=== PATIENT | female | born 1990 | race Two or more races ===

== ENCOUNTER 2024-04-18 09:25 | Emergency (ER) | payer MEDICAID, SELFPAY ==
[2024-04-18 10:02] VITALS: BP 132/89; PULSE 92; RESP 20; TEMP 36.7; O2SAT 96; BMI 28.4
--- NOTE | 2024-04-18 10:03 | XR_ITS ---
Examination: PA lateral chest 2 views TECHNIQUE: Upright AP lateral chest 2 views Exam date and time: April 18, 2024 1007 hours INDICATIONS: Chest pain vomiting beginning 3 days ago. FINDINGS: Early pneumonia lingular segment left upper lobe Right lung clear Normal heart size IMPRESSION: Early pneumonia lingular segment left upper lobe
--- NOTE | 2024-04-18 10:14 | PD.EDRME ---
Rapid Medical Screening Exam RME Arrival date/time: 04/18/24 09:25 This is a 33-year-old female presents to the emergency department with complaints of nausea vomiting cough and fever since Sunday. I have greeted and performed a focused initial assessment of this patient. Initial appropriate labs ordered at this time. A comprehensive ED assessment and evaluation of the patient and analysis of all test and completion of medical decision making process will be conducted by additional ED provider. Chief Complaint: Nausea/Vomiting/Diarrhea Time Seen by Provider: 04/18/24 10:01 Vital signs: Vital Signs Temperature 98.0 F 04/18/24 10:02 Pulse Rate 92 04/18/24 10:02 Respiratory Rate 20 04/18/24 10:02 Blood Pressure 132/89 H 04/18/24 10:02 Pulse Oximetry (%) 96 04/18/24 10:02 Oxygen Delivery Method Room Air 04/18/24 10:02
[2024-04-18 10:39] LABS: Basophils % (Auto) 0 % (0-2.5); Eosinophils % (Auto) 0 % (0-10); Hematocrit 48.5 % (36.0-46.0); Hemoglobin 16.7 g/dL (12.0-16.0); Immature Granulocytes % (Auto) 1 % (0-0); Immature Granulocytes Auto 0.06 Thou/mm3 (0.00-0.00); Lymphocytes # (Auto) 1.1 Thou/mm3 (1.0-4.8); Lymphocytes % (Auto) 12 % (10-50); Mean Corpuscular HGB Conc 34.4 g/dl (31.0-37.0); Mean Corpuscular Hemoglobin 28.5 pg (25.0-35.0); Mean Corpuscular Volume 83 fL (80-100); Monocytes # (Auto) 0.9 Thou/mm3 (0.0-0.8); Monocytes % (Auto) 10 % (0-12); Neutrophils # (Auto) 6.9 Thou/mm3 (1.8-7.7); Neutrophils % (Auto) 77 % (37-80); Nucleated Red Blood Cell % 0 /100 WBC (0); Platelet Count 208 Thou/mm3 (140-440); RDW Standard Deviation 37.8 fL (36.4-46.3); Red Blood Count 5.86 Miln/mm3 (4.00-5.20)
[2024-04-18] MEDS: LIDOCAINE VISCOUS 2% 15 ML UDC PO (10:57)
[2024-04-18] MEDS: ONDANSETRON ODT 4 MG TABRAP 8 MG PO (10:57)
[2024-04-18] MEDS: MG HYD/AL HYD/SIME (Maalox Reg) SUSP 30 ML UDC PO (10:58)
[2024-04-18 11:00] LABS: Alanine Aminotransferase 64 U/L (10-49); Albumin, Serum 5.8 gm/dL (3.5-5.0); Alkaline Phosphatase 102 U/L (46-116); Anion Gap 13 (7-16); Aspartate Amino Transferase 52 U/L (0-34); BUN/Creatinine Ratio 10 Ratio (12-20); Bilirubin,Total 1.2 mg/dL (0.3-1.2); Blood Urea Nitrogen 10 mg/dL (9-23); Calcium 9.7 mg/dL (8.3-10.6); Calcium (Corrected) 9.7 mg/dL (8.5-10.1); Carbon Dioxide 24.8 mMol/L (20.0-31.0); Chloride 94 mMol/L (98-107); Estimated Creatinine Clearance 81.6 mL/min (>60); Globulin 2.9 gm/dL (2.3-3.5); Glucose 142 mg/dL (74-106); Lipase 41 U/L (12-53); Osmolality,Calculated 265 (275-295); Potassium 3.2 mMol/L (3.4-5.1); Sodium 132 mMol/L (136-145); Total Protein 8.7 gm/dL (5.7-8.2); eGFR > 60 See Note
--- NOTE | 2024-04-18 12:15 | PD.EDADULT ---
ED General RME/HPI General Chief complaint: Nausea/Vomiting/Diarrhea Stated complaint: N/V, ABD PAIN Time Seen by Provider: 04/18/24 10:01 Arrival date/time: 04/18/24 09:25 RME / HPI RME / HPI narrative: 33-year-old female presents to the emergency department with complaints of nausea vomiting cough and fever since Sunday. Severity of symptoms moderate. Patient denies any fever. Patient denies any abdominal pain. Denies any other complaints. No medication was taken prior travel. Related Data Home Medications ?Medication ?Instructions ?Recorded ?Confirmed baclofen 20 mg tablet 20 mg PO QDAY PRN Pain 11/29/20 11/29/20 diclofenac sodium 1 % topical gel 4 g topical PRN PRN Pain 11/29/20 11/29/20 naproxen 500 mg tablet 500 mg PO Q12H PRN Pain 11/29/20 11/29/20 Previous Rx's ?Medication ?Instructions ?Recorded loperamide 2 mg capsule (Imodium 2 mg PO Q6H PRN loose stool #14 11/29/20 A-D) caps loperamide 2 mg capsule (Imodium 2 mg PO Q6H PRN loose stool #14 07/12/21 A-D) caps cetirizine 5 mg-pseudoephedrine ER 1 tab PO BID #20 tabs 12/18/21 120 mg tablet,extended release,12hr (Zyrtec-D) naproxen 500 mg tablet (Naprosyn) 500 mg PO BID #30 tabs 12/18/21 sodium chloride 0.65 % nasal spray 2 spray intranasal BID PRN nasal 12/18/21 aerosol (Saline Mist) congestion #45 mL cyclobenzaprine 5 mg tablet 5 mg PO QHSPRN PRN muscle spasm 09/03/22 #10 tabs lidocaine 5 % topical patch 1 patch topical QDAY #15 ea 09/03/22 (Lidoderm) cephalexin 500 mg capsule 500 mg PO QID #28 caps 09/18/22 albuterol sulfate 90 mcg/actuation 2 puff inhalation Q6H PRN 08/05/23 aerosol inhaler (Ventolin HFA) shortness of breath or wheezing #8.5 grams loratadine 10 mg tablet 10 mg PO QDAY #30 tabs 08/05/23 promethazine-DM 6.25 mg-15 mg/5 mL 5 ml PO Q6H PRN cough #118 mL 08/05/23 oral syrup benzonatate 100 mg capsule 100 mg PO TID #14 caps 12/18/23 amoxicillin 875 mg-potassium 1 tab PO BID #14 tabs 04/18/24 clavulanate 125 mg tablet famotidine 40 mg tablet (Pepcid) 40 mg PO BID #14 tabs 04/18/24 ondansetron HCl 4 mg tablet 4 mg PO Q8H PRN nausea and 04/18/24 vomiting 5 days #20 tabs Allergies Allergy/AdvReac Type Severity Reaction Status Date / Time ibuprofen AdvReac Severe HX STOMACH Verified 12/18/23 08:23 INFECTION Review of Systems Review of Systems Narrative Review of Systems: Review of system reviewed and within normal limits except mentioned in HPI ED Exam Narrative Physical exam: VITAL SIGNS: Reviewed. GENERAL APPEARANCE: Alert and interactive, follows commands, no acute distress, HEAD AND FACE: Non-traumatic. ENT: PERRL, pink conjunctivitis, eyelid no trauma, Mucous membrane moist. NECK: Supple, nontender, no nuchal rigidity. CHEST: No tenderness, no crepitus, no paradoxical movement, no retractions. LUNGS: Clear, well ventilated, symmetric, no rales, no wheezing, no ronchi, no stridor, good breath sounds bilaterally. HEART: Regular rate, regular rhythm, no murmur, no gallops. ABDOMEN: Soft, positive bowel sounds, nondistended, no guarding, nontender, no rebound, no masses, RECTAL: Deferred. GENITAL: Deferred. NEUROLOGICAL: Gross motor function intact sensory function intact, Appropriate for age. MUSCULOSKELETAL: low back nontender, full range of motion. EXTREMITIES: Nontender, full range of motion. SKIN: Color pink, dry, no rash, no lacerations, no abrasions, no contusions. LYMPHATICS: Deferred. Course Quality Measures none Orders Category Date Time Status Bedside COVID-19 Antigen Test NOW Care 04/18/24 10:12 Active Bedside Influenza A&B Antigen Test NOW Care 04/18/24 10:13 Active XR chest 2V Stat Exams 04/18/24 10:03 Completed CBC Stat Lab 04/18/24 10:28 Completed Comprehensive Metabolic Panel Stat Lab 04/18/24 10:28 Completed HCG Qualitative,Urine Stat Lab 04/18/24 10:13 Ordered Lipase Stat Lab 04/18/24 10:28 Completed Urinalysis Stat Lab 04/18/24 10:13 Ordered Amoxicillin/Pot Clav 875 [Augmentin 875] Med 04/18/24 12:13 Discontinued 1 tab PO X1 ONE Lidocaine 2% Viscous [Xylocaine 2% Viscous] Med 04/18/24 10:13 Discontinued 15 ml PO X1 ONE Ondansetron Odt [Zofran Odt] Med 04/18/24 10:12 Discontinued 8 mg PO X1 ONE Potassium Chloride [K-Dur] Med 04/18/24 12:13 Discontinued 40 meq PO X1 ONE mg Hyd/Al Hyd/Juan Jose Susp [Maalox Susp] Med 04/18/24 10:13 Discontinued 30 ml PO X1 ONE Vital Signs Vital signs: Vital Signs Temperature 98.0 F 04/18/24 10:02 Pulse Rate 92 04/18/24 10:02 Respiratory Rate 20 04/18/24 10:02 Blood Pressure 132/89 H 04/18/24 10:02 Pulse Oximetry (%) 96 04/18/24 10:02 Oxygen Delivery Method Room Air 04/18/24 10:02 [facility] Patient data External records reviewed:: None Clinical information provided by:: patient Social determinants that could affect healthcare access:: none Patient has the following chronic illnesses:: None How is presenting disease/condition affected by chronic disease/condition?: no chronic disease Evaluation data The following diagnostics were reviewed and interpreted by me:: lab results and radiology exam(s) Lab and/or radiology exams considered but not ordered:: None Interpretation Summary: Laboratory workup is significant for potassium 3.2. The rest of the labs are unremarkable. Chest x-ray showed pneumonia Medications Medications considered but not ordered:: None Medication administrations:: Medication Administration History Discontinued Medications Al Hydrox/Mg Hydrox/Simethicone (Mg Hyd/Al Hyd/Juan Jose (Maalox Reg) Susp 30 Ml Udc) 30 ml PO X1 ONE Stop: 04/18/24 10:14 Last Admin: 04/18/24 10:58 Dose: 30 ml Documented By: ISHA Amoxicillin/Clavulanate Potassium (Amoxicillin/Pot Clav 875 Tablet) 1 tab PO X1 ONE Stop: 04/18/24 12:14 Lidocaine HCl (Lidocaine Viscous 2% 15 Ml Udc) 15 ml PO X1 ONE Stop: 04/18/24 10:14 Last Admin: 04/18/24 10:57 Dose: 15 ml Documented By: ISHA Ondansetron HCl (Ondansetron Odt 4 Mg Tabrap) 8 mg PO X1 ONE; Protocol Stop: 04/18/24 10:13 Last Admin: 04/18/24 10:57 Dose: 8 mg Documented By: ISHA Potassium Chloride (Potassium Chloride 20 Meq Tabcr) 40 meq PO X1 ONE Stop: 04/18/24 12:14 None potassium replacement Zofran Augmentin and Maalox Consultations Consultation(s) initiated? (list below): No Diagnosis Differential Diagnosis ED Complaint MDM: Pneumonia, nausea vomiting, viral infection Most likely diagnosis given after review of the tests above:: Pneumonia Admission Indicated Admission indicated?: not indicated Explain why admission is indicated or not indicated:: Stable Admission Request Was there a request for admission?: No Disposition Plan Disposition Plan: Discharge Discharge Attestation Discharge Attestation: The patient was given an opportunity to ask questions and understood the discharge instructions. Discharge instructions specifically effects, indications for sooner follow up or return to the emergency department, and the expected course of current diagnosis. Patient condition: Stable Medical Decision Making MDM Narrative MDM Narrative: 33-year-old female presents to the emergency department with complaints of nausea vomiting cough and fever since Sunday. Severity of symptoms moderate. Patient denies any fever. Patient denies any abdominal pain. Denies any other complaints. No medication was taken prior travel. Patient's workup all came back with chest x-ray that showed pneumonia. CBC no leukocytosis CMP showed potassium of 3.2 the rest of the labs unremarkable. Patient received Zofran, Maalox, Augmentin, and potassium replacement in the ED. Currently patient is satting 96% on room air patient is tolerating p.o. fluids in the ED. Differential Diagnosis Differential Diagnosis: Pneumonia, nausea vomiting, viral infection Lab Data 04/18/24 10:28 04/18/24 10:28 Labs: Lab Results 04/18/24 Range/Units 10:28 WBC 9.0 (3.6-11.0) Thou/mm3 RBC 5.86 H (4.00-5.20) Miln/mm3 Hgb 16.7 H (12.0-16.0) g/dL Hct 48.5 H (36.0-46.0) % MCV 83 (80-100) fL MCH 28.5 (25.0-35.0) pg MCHC 34.4 (31.0-37.0) g/dl RDW Std Deviation 37.8 (36.4-46.3) fL Plt Count 208 (140-440) Thou/mm3 Neut % (Auto) 77 (37-80) % Lymph % (Auto) 12 (10-50) % [place] % (Auto) 10 (0-12) % Eos % (Auto) 0 (0-10) % Baso % (Auto) 0 (0-2.5) % Neut # (Auto) 6.9 (1.8-7.7) Thou/mm3 Lymph # (Auto) 1.1 (1.0-4.8) Thou/mm3 [place] # (Auto) 0.9 H (0.0-0.8) Thou/mm3 Eos # (Auto) 0.0 (0.0-0.5) Thou/mm3 Baso # (Auto) 0.0 (0.0-0.2) Thou/mm3 Immature Gran # (Auto) 0.06 H (0.00-0.00) Thou/mm3 Absolute Nucleated RBC 0.00 (0.00-0.00) Thou/mm3 Immature Gran % 1 H (0-0) % Nucleated RBC % 0 (0) /100 WBC Sodium 132 L (136-145) mMol/L Potassium 3.2 L (3.4-5.1) mMol/L Chloride 94 L (98-107) mMol/L Carbon Dioxide 24.8 (20.0-31.0) mMol/L Anion Gap 13 (7-16) BUN 10 (9-23) mg/dL Creatinine 1.0 (0.6-1.3) mg/dL Estim Creat Clear Calc 81.6 (>60) mL/min eGFR > 60 (60 - ) See Note BUN/Creatinine Ratio 10 L (12-20) Ratio Glucose 142 H (74-106) mg/dL Calculated Osmolality 265 L (275-295) Calcium 9.7 (8.3-10.6) mg/dL Corrected Calcium 9.7 (8.5-10.1) mg/dL Total Bilirubin 1.2 (0.3-1.2) mg/dL AST 52 H (0-34) U/L ALT 64 H (10-49) U/L Alkaline Phosphatase 102 (46-116) U/L Total Protein 8.7 H (5.7-8.2) gm/dL Albumin 5.8 H (3.5-5.0) gm/dL Globulin 2.9 (2.3-3.5) gm/dL Albumin/Globulin Ratio 2.0 (1.2-2.2) Lipase 41 (12-53) U/L Discharge Plan Plan Patient Disposition: HOME (Self Care) Disposition Comment: stable Prescriptions/Referrals Prescriptions/Med Rec: New amoxicillin-pot clavulanate 875-125 mg tablet 1 tab PO BID Qty: 14 0RF ondansetron HCl 4 mg tablet 4 mg PO Q8H PRN (Reason: nausea and vomiting) 5 Days Qty: 20 0RF famotidine [Pepcid] 40 mg tablet 40 mg PO BID Qty: 14 0RF No Action baclofen 20 mg tablet 20 mg PO QDAY PRN (Reason: Pain) Patient Comments: take 1 tablet by mouth twice a day if needed for MUSCLE PAIN naproxen 500 mg tablet 500 mg PO Q12H PRN (Reason: Pain) Patient Comments: take 1 tablet by mouth every 12 hours if needed pain diclofenac sodium 1 % gel 4 g TOPICAL PRN PRN (Reason: Pain) Patient Comments: apply 4 grams to AFFECTED JOINT four times a day loperamide [Imodium A-D] 2 mg capsule 2 mg PO Q6H PRN (Reason: loose stool) Qty: 14 0RF loperamide [Imodium A-D] 2 mg capsule 2 mg PO Q6H PRN (Reason: loose stool) Qty: 14 0RF cetirizine-pseudoephedrine [Zyrtec-D] 5-120 mg tablet extended release 12 hr 1 tab PO BID Qty: 20 0RF naproxen [Naprosyn] 500 mg tablet 500 mg PO BID Qty: 30 0RF Saline Mist 0.65 % aerosol,spray 2 spray intranasal BID PRN (Reason: nasal congestion) Qty: 45 0RF cyclobenzaprine 5 mg tablet 5 mg PO QHSPRN PRN (Reason: muscle spasm) Qty: 10 0RF lidocaine [Lidoderm] 5 % adhesive patch,medicated 1 patch topical QDAY Qty: 15 0RF Rx Instructions: leave on most painful area for up to 12 hrs cephalexin 500 mg capsule 500 mg PO QID Qty: 28 0RF benzonatate 100 mg capsule 100 mg PO TID Qty: 14 0RF albuterol sulfate [Ventolin HFA] 90 mcg/actuation HFA aerosol inhaler 2 puff inhalation Q6H PRN (Reason: shortness of breath or wheezing) Qty: 8.5 0RF promethazine-DM 6.25-15 mg/5 mL syrup 5 ml PO Q6H PRN (Reason: cough) Qty: 118 0RF loratadine 10 mg tablet 10 mg PO QDAY Qty: 30 0RF Referrals: Travis Walker MD [Primary Care Provider] - In 1 week Problem List Clinical Impression: Nausea & vomiting, Pneumonia Patient/Caregiver Discharge Instructions Discharge Activity: activity as tolerated Education Materials: ED Vomiting (Adult) Additional Instructions: Thank you for the opportunity for serving you today. You are stable for discharged . You are advised to: Follow-up with your PCP in 1 to 2 days Return to ED for worsening of symptoms Increase oral fluids Take medication as prescribed Print Language: Divehi Stand Alone Forms: Dinorah Award Info., Work/School Release, Patient Portal Info Letter
[2024-04-18 12:38] LABS: Collection Type, Urine Clean Catch
[2024-04-18 13:02] LABS: Bacteria,Urine 1+; Bilirubin,Urine 1+ (Negative); Blood,Urine 2+ (Negative); Color,Urine Yellow (Lt Yel-Yel); Glucose, Urine Trace (Negative); Ketones,Urine 4+ (Negative); Leukocyte Esterase,Urine Negative (Negative); Nitrite,Urine Negative (Negative); PH,Urine 6.5 (5.0-7.0); Protein,Urine 4+ (Neg - Trace); RBC,Urine 10 /hpf (0-3); Specific Gravity,Urine 1.038 (1.001-1.035); Squamous Epithelial Cell,Urine 7 /hpf (0-5); WBC,Urine 18 /hpf (0-5)
[2024-04-18 13:05] LABS: HCG Qualitative,Urine Negative
[2024-04-18] MEDS: POTASSIUM CHLORIDE 20 mEq TABCR 40 MEQ PO (13:05)
[2024-04-18] MEDS: AMOXICILLIN/POT CLAV 875 TABLET 1 TAB PO (13:06)
[2024-04-18 13:44] LABS: Clarity,Urine Hazy (Clear/Hazy)
== END 2024-04-18 13:10 | disposition home or self-care (01) ==
PROVIDERS: Nurse Practitioner Primary Care; Emergency Provider Emergency Medicine; PCP Family Medicine
DX: J18.9 Pneumonia, unspecified organism (principal)
CPT/HCPCS: 36415; 71046; 80053; 81001; 81025; 83690; 85025; 87400; 87811; 99283; J3490; Q0162; A9270

== ENCOUNTER 2024-04-21 06:44 | Emergency (ER) | payer MEDICAID, SELFPAY ==
[2024-04-21 06:45] VITALS: BMI 30.9
[2024-04-21 06:52] VITALS: BP 136/89; PULSE 115; RESP 17; TEMP 36.5; O2SAT 96
[2024-04-21] MEDS: SODIUM CHLORIDE 0.9% 1000 ML 1,000 ML 999 ML IV (07:13)
[2024-04-21] MEDS: METOCLOPRAMIDE INJ 5 MG/ML VIAL 2 ML 10 MG IVP (07:17)
[2024-04-21 07:29] LABS: Basophils # (Auto) 0.1 Thou/mm3 (0.0-0.2); Basophils % (Auto) 1 % (0-2.5); Eosinophils % (Auto) 0 % (0-10); Hematocrit 52.1 % (36.0-46.0); Hemoglobin 18.2 g/dL (12.0-16.0); Immature Granulocytes % (Auto) 0 % (0-0); Immature Granulocytes Auto 0.03 Thou/mm3 (0.00-0.00); Lymphocytes # (Auto) 2.2 Thou/mm3 (1.0-4.8); Lymphocytes % (Auto) 30 % (10-50); Mean Corpuscular HGB Conc 34.9 g/dl (31.0-37.0); Mean Corpuscular Hemoglobin 28.1 pg (25.0-35.0); Mean Corpuscular Volume 80 fL (80-100); Monocytes # (Auto) 0.5 Thou/mm3 (0.0-0.8); Monocytes % (Auto) 6 % (0-12); Neutrophils # (Auto) 4.6 Thou/mm3 (1.8-7.7); Neutrophils % (Auto) 63 % (37-80); Nucleated Red Blood Cell % 0 /100 WBC (0); Platelet Count 300 Thou/mm3 (140-440); RDW Standard Deviation 35.1 fL (36.4-46.3); Red Blood Count 6.48 Miln/mm3 (4.00-5.20); White Blood Count 7.3 Thou/mm3 (3.6-11.0)
[2024-04-21 07:58] LABS: Collection Type, Urine Clean Catch
[2024-04-21 08:19] VITALS: BP 128/85; PULSE 71; RESP 15; TEMP 36.7; O2SAT 87
[2024-04-21 08:20] VITALS: O2SAT 94
--- NOTE | 2024-04-21 08:33 | XR_ITS ---
Examination: AP chest single view Technique one AP portable upright chest single view Exam date and time: April 21, 2024 0838 hours INDICATIONS: Shortness of breath today FINDINGS: Normal heart size Lungs are clear. The osseous structures are intact IMPRESSION: No active disease
[2024-04-21 08:52] LABS: Alanine Aminotransferase 222 U/L (10-49); Albumin, Serum 5.6 gm/dL (3.5-5.0); Albumin/Globulin Ratio 1.9 (1.2-2.2); Alkaline Phosphatase 106 U/L (46-116); Anion Gap 17 (7-16); Aspartate Amino Transferase 178 U/L (0-34); BUN/Creatinine Ratio 12 Ratio (12-20); Bilirubin,Total 1.4 mg/dL (0.3-1.2); Blood Urea Nitrogen 16 mg/dL (9-23); Calcium 9.8 mg/dL (8.3-10.6); Calcium (Corrected) 9.8 mg/dL (8.5-10.1); Carbon Dioxide 23.5 mMol/L (20.0-31.0); Chloride 94 mMol/L (98-107); Creatinine (Component) 1.3 mg/dL (0.6-1.3); Globulin 2.9 gm/dL (2.3-3.5); Glucose 183 mg/dL (74-106); Lipase 47 U/L (12-53); Osmolality,Calculated 274 (275-295); Potassium 3.2 mMol/L (3.4-5.1); Sodium 134 mMol/L (136-145); Total Protein 8.5 gm/dL (5.7-8.2); eGFR 55 See Note
[2024-04-21] MEDS: ALBUTEROL/IPRATROPIUM (Duoneb) RT SOL 3 ML NEBU INH (08:53)
[2024-04-21 08:54] VITALS: PULSE 74; RESP 18; O2SAT 97
[2024-04-21] MEDS: DEXAMETHASONE SOD PHOS INJ 10 MG/ML VIAL IV (08:56)
--- NOTE | 2024-04-21 09:05 | XR_ITS ---
Examination: Abdomen sonogram, Limited Date and time of exam: April 21, 2024 1001 hours INDICATIONS: Vomiting beginning 6 days ago Technique: Real-time mark scale transabdominal sonographic images of the upper abdomen obtained. Findings: Normal gallbladder Normal common bile duct 0.3 cm Pancreatic head 2.4 cm Liver 16.8 cm fatty infiltration smooth contour no focal liver lesions Normal hepatopedal portal venous flow Patent IVC IMPRESSION: Normal gallbladder Mild hepatomegaly fatty liver
[2024-04-21 09:14] LABS: Bilirubin,Urine 1+ (Negative); Blood,Urine 3+ (Negative); Color,Urine Orange (Lt Yel-Yel); Culture Indicated,Urine Contaminated; Glucose, Urine Trace (Negative); Ketones,Urine 2+ (Negative); Leukocyte Esterase,Urine Positive (Negative); Nitrite,Urine Negative (Negative); PH,Urine 6.5 (5.0-7.0); Protein,Urine 3+ (Neg - Trace); RBC,Urine 3873 /hpf (0-3); Squamous Epithelial Cell,Urine 17 /hpf (0-5); WBC,Urine 20 /hpf (0-5)
[2024-04-21 09:18] LABS: Clarity,Urine Turbid (Clear/Hazy)
[2024-04-21 09:19] LABS: HCG Qualitative,Urine Negative
--- NOTE | 2024-04-21 09:20 | PD.EDNV ---
Nausea/Vomit./Diarrhea-RME/HPI General Chief complaint: Nausea/Vomiting/Diarrhea Stated complaint: N/V/D X 1 WEEK Time Seen by Provider: 04/21/24 06:51 Arrival date/time: 04/21/24 06:44 33-year-old female presents emergency department complains of nausea vomiting and diarrhea patient for symptoms ongoing x 1 week patient was recently seen in the ER patient was diagnosed with pneumonia as well as influenza patient reports she still has vomiting Limitations: no limitations Related Data Home Medications ?Medication ?Instructions ?Recorded ?Confirmed baclofen 20 mg tablet 20 mg PO QDAY PRN Pain 11/29/20 11/29/20 diclofenac sodium 1 % topical gel 4 g topical PRN PRN Pain 11/29/20 11/29/20 naproxen 500 mg tablet 500 mg PO Q12H PRN Pain 11/29/20 11/29/20 Previous Rx's ?Medication ?Instructions ?Recorded loperamide 2 mg capsule (Imodium 2 mg PO Q6H PRN loose stool #14 11/29/20 A-D) caps loperamide 2 mg capsule (Imodium 2 mg PO Q6H PRN loose stool #14 07/12/21 A-D) caps cetirizine 5 mg-pseudoephedrine ER 1 tab PO BID #20 tabs 12/18/21 120 mg tablet,extended release,12hr (Zyrtec-D) naproxen 500 mg tablet (Naprosyn) 500 mg PO BID #30 tabs 12/18/21 sodium chloride 0.65 % nasal spray 2 spray intranasal BID PRN nasal 12/18/21 aerosol (Saline Mist) congestion #45 mL cyclobenzaprine 5 mg tablet 5 mg PO QHSPRN PRN muscle spasm 09/03/22 #10 tabs lidocaine 5 % topical patch 1 patch topical QDAY #15 ea 09/03/22 (Lidoderm) cephalexin 500 mg capsule 500 mg PO QID #28 caps 09/18/22 albuterol sulfate 90 mcg/actuation 2 puff inhalation Q6H PRN 08/05/23 aerosol inhaler (Ventolin HFA) shortness of breath or wheezing #8.5 grams loratadine 10 mg tablet 10 mg PO QDAY #30 tabs 08/05/23 promethazine-DM 6.25 mg-15 mg/5 mL 5 ml PO Q6H PRN cough #118 mL 08/05/23 oral syrup benzonatate 100 mg capsule 100 mg PO TID #14 caps 12/18/23 amoxicillin 875 mg-potassium 1 tab PO BID #14 tabs 04/18/24 clavulanate 125 mg tablet famotidine 40 mg tablet (Pepcid) 40 mg PO BID #14 tabs 04/18/24 ondansetron HCl 4 mg tablet 4 mg PO Q8H PRN nausea and 04/18/24 vomiting 5 days #20 tabs oseltamivir 75 mg capsule (Tamiflu) 75 mg PO BID 5 days #10 caps 04/18/24 metoclopramide HCl 10 mg tablet 10 mg PO Q6H PRN nausea and 04/21/24 (Reglan) vomiting #30 tabs promethazine 12.5 mg rectal 12.5 mg AR Q8HR PRN nausea and 04/21/24 suppository vomiting #12 ea Allergies Allergy/AdvReac Type Severity Reaction Status Date / Time ibuprofen AdvReac Severe HX STOMACH Verified 04/21/24 06:48 INFECTION Review of Systems Review of Systems Systems Reviewed: All systems reviewed, normal except as documented Constitutional Constitutional: Reports system reviewed and no additional complaints, except as documented, Reports body ache(s), Reports chills, Reports fever(s) and Denies headache(s) Eyes Eyes: Reports system reviewed and no additional complaints, except as documented and Denies blurry vision ENT Ears, Nose, Mouth, and Throat: Reports system reviewed and no additional complaints, except as documented, Denies headache(s), Denies nasal congestion and Denies nasal discharge Cardiovascular Cardiovascular: Reports system reviewed and no additional complaints, except as documented, Denies chest pain and Denies dyspnea Respiratory Respiratory: Reports system reviewed and no additional complaints, except as documented, Reports chest congestion, Reports cough and Denies dyspnea Gastrointestinal Gastrointestinal: Reports system reviewed and no additional complaints, except as documented, Denies abdominal pain, Reports loose stools, Reports nausea and Reports vomiting Integumentary/Breasts Skin/Breast: Reports system reviewed and no additional complaints, except as documented and Denies rash Neurologic Neurologic: Reports system reviewed and no additional complaints, except as documented, Reports as per HPI and Denies headache(s) Past Medical History Past Medical History NEUROLOGIC: Negative Neurological Disorders CARDIAC: Negative Cardiac Disorders or Congestive Heart Failure RESPIRATORY: Negative Chronic Obstructive Pulmonary Disease (COPD) or Asthma GENITOURINARY: Negative Renal Disease ENDOCRINE: Negative Diabetes Mellitus Type 1 or Diabetes Mellitus Type 2 HEMATOLOGIC: Negative Sickle Cell Disease Social History SMOKING STATUS: Current some day smoker SUBSTANCE USE: marijuana ED Exam General Limitations: Present no limitations General appearance: Present alert and in no apparent distress Head Head exam: Present atraumatic Eye Eye exam: Present normal appearance, PERRL and EOMI; Absent conjunctival injection ENT ENT exam: Present normal exam, normal oropharynx and mucous membranes moist Neck Neck exam: Present normal inspection, full ROM and trachea midline Chest Chest inspection: Present normal inspection and symmetric chest wall rise Respiratory Respiratory exam: Present normal lung sounds bilaterally; Absent respiratory distress Cardiovascular Cardiovascular exam: Present regular rate, normal rhythm and normal heart sounds Abdominal Exam Abdominal exam: Present soft and normal bowel sounds; Absent distention, tenderness, guarding, rebound, rigidity, Jackson's sign or tenderness at McBurney's Point Abdominal tenderness: Absent RUQ or RLQ Extremities Exam Extremities exam: Present normal inspection and full ROM Back Exam Back exam: Present normal inspection and full ROM Neurological Exam Neurological exam: Present alert, oriented X3 and CN II-XII intact Psychiatric Psychiatric exam: Present normal affect and normal mood Skin Skin exam: Present warm, dry, intact and normal color Course Quality Measures none Orders Category Date Time Status Insert IV NOW Care 04/21/24 07:12 Completed US gall bladder Stat Exams 04/21/24 09:05 Completed XR chest 1V portable Stat Exams 04/21/24 08:33 Completed A1C [Glycohemoglobin w (eAG)] Stat Lab 04/21/24 07:22 Completed CBC Stat Lab 04/21/24 07:22 Completed Comprehensive Metabolic Panel Stat Lab 04/21/24 07:22 Completed HCG Qualitative,Urine Stat Lab 04/21/24 07:43 Completed Lipase Stat Lab 04/21/24 07:22 Completed Yolo Screen Stat Lab 04/21/24 10:31 Received UA, C/S IF [Urinalysis, C/S if Indicated] Stat Lab 04/21/24 07:43 Completed Albuterol/Ipratr Rt Sharon [Duoneb Rt Sharon] Med 04/21/24 08:33 Discontinued 3 ml INH X1 ONE Dexamethasone Inj [Decadron Inj] Med 04/21/24 08:33 Discontinued 10 mg IV X1 ONE Metoclopramide Inj [Reglan Inj] Med 04/21/24 07:00 Discontinued 10 mg IVP X1 ONE Potassium Chloride [K-Dur] Med 04/21/24 09:06 Discontinued 40 meq PO X1 ONE Sodium Chloride 0.9% 1000 ml [Ns] 1,000 ml Med 04/21/24 07:00 Discontinued IV 999 mls/hr Vital Signs Vital signs: Vital Signs Temperature 97.7 F 04/21/24 06:52 Pulse Rate 115 H 04/21/24 06:52 Respiratory Rate 17 04/21/24 06:52 Blood Pressure 136/89 H 04/21/24 06:52 Pulse Oximetry (%) 96 04/21/24 06:52 Oxygen Delivery Method Room Air 04/21/24 06:52 O2 saturation 96% on room air within normal limits Nausea/Vomiting/Diarrhea MDM Narrative MDM Narrative:: 33-year-old female presents emergency department complains of nausea vomiting and diarrhea patient for symptoms ongoing x 1 week patient was recently seen in the ER patient was diagnosed with pneumonia as well as influenza patient reports she still has vomiting Lab work obtained patient has elevation of liver enzymes Gallbladder ultrasound obtained no acute emergent findings noted I suspect the patient's liver enzymes elevated secondary viral process Yolo was added and is pending Patient does have cough and congestion therefore patient given breathing treatment and steroids, patient given IV fluids and a dose of potassium Time reevaluation patient reports she feels significantly better Explained to the patient that she should have repeat chemistry panel in 1 week Patient discharged home in no distress to follow-up with primary care doctor in the next 24 to 48 hours and for any worsening symptoms to return to the ER immediately Patient data External records reviewed:: [facility] previous records Clinical information provided by:: patient Social determinants that could affect healthcare access:: none Patient has the following chronic illnesses:: None How is presenting disease/condition affected by chronic disease/condition?: uneffected by Evaluation data The following diagnostics were reviewed and interpreted by me:: lab results and radiology exam(s) Lab and/or radiology exams considered but not ordered:: Labs and radiology obtained Interpretation Summary: Reviewed by me Medications / Prescriptions Medications / Prescriptions considered but not ordered:: Given Medication administrations:: Medication Administration History Discontinued Medications Albuterol/Ipratropium (Albuterol/Ipratropium (Duoneb) Rt Sharon 3 Ml Nebu) 3 ml INH X1 ONE Stop: 04/21/24 08:34 Last Admin: 04/21/24 08:53 Dose: 3 ml Documented By: CRYSTAL Dexamethasone Sodium Phosphate (Dexamethasone Sod Phos Inj 10 Mg/Ml Vial) 10 mg IV X1 ONE Stop: 04/21/24 08:34 Last Admin: 04/21/24 08:56 Dose: 10 mg Documented By: KARAN Sodium Chloride (Ns) 1,000 mls @ 999 mls/hr IV .Q1H1M ONE Stop: 04/21/24 08:00 Last Infusion: 04/21/24 08:25 Dose: Infused Documented By: Admin: 04/21/24 07:13 Dose: 999 mls/hr Documented By: KARAN Metoclopramide HCl (Metoclopramide Inj 5 Mg/Ml Vial 2 Ml) 10 mg IVP X1 ONE; Protocol Stop: 04/21/24 07:01 Last Admin: 04/21/24 07:17 Dose: 10 mg Documented By: KARAN Potassium Chloride (Potassium Chloride 20 Meq Tabcr) 40 meq PO X1 ONE Stop: 04/21/24 09:07 Last Admin: 04/21/24 09:35 Dose: 40 meq Documented By: KARAN Given Consultations Consultation(s) initiated? (list below): No Diagnosis Nausea Differential Diagnosis: traveler's diarrhea, food poisoning, gastroenteritis and dehydration Most likely diagnosis given after review of the tests above:: Viral illness Admission Indicated Admission indicated?: not indicated Admission Request Was there a request for admission?: No Disposition Plan Disposition Plan: Discharge Discharge Attestation Discharge Attestation: The patient and all family members were given an opportunity to ask questions and understood the discharge instructions. Discharge instructions specifically effects, indications for sooner follow up or return to the emergency department, and the expected course of current diagnosis. Patient condition: Stable Discharge Plan Plan Patient Disposition: HOME (Self Care) Disposition Comment: Stable Prescriptions/Referrals Prescriptions/Med Rec: New promethazine 12.5 mg suppository 12.5 mg AR Q8HR PRN (Reason: nausea and vomiting) Qty: 12 0RF metoclopramide HCl [Reglan] 10 mg tablet 10 mg PO Q6H PRN (Reason: nausea and vomiting) Qty: 30 0RF No Action baclofen 20 mg tablet 20 mg PO QDAY PRN (Reason: Pain) Patient Comments: take 1 tablet by mouth twice a day if needed for MUSCLE PAIN naproxen 500 mg tablet 500 mg PO Q12H PRN (Reason: Pain) Patient Comments: take 1 tablet by mouth every 12 hours if needed pain diclofenac sodium 1 % gel 4 g TOPICAL PRN PRN (Reason: Pain) Patient Comments: apply 4 grams to AFFECTED JOINT four times a day loperamide [Imodium A-D] 2 mg capsule 2 mg PO Q6H PRN (Reason: loose stool) Qty: 14 0RF loperamide [Imodium A-D] 2 mg capsule 2 mg PO Q6H PRN (Reason: loose stool) Qty: 14 0RF cetirizine-pseudoephedrine [Zyrtec-D] 5-120 mg tablet extended release 12 hr 1 tab PO BID Qty: 20 0RF naproxen [Naprosyn] 500 mg tablet 500 mg PO BID Qty: 30 0RF Saline Mist 0.65 % aerosol,spray 2 spray intranasal BID PRN (Reason: nasal congestion) Qty: 45 0RF cyclobenzaprine 5 mg tablet 5 mg PO QHSPRN PRN (Reason: muscle spasm) Qty: 10 0RF lidocaine [Lidoderm] 5 % adhesive patch,medicated 1 patch topical QDAY Qty: 15 0RF Rx Instructions: leave on most painful area for up to 12 hrs cephalexin 500 mg capsule 500 mg PO QID Qty: 28 0RF benzonatate 100 mg capsule 100 mg PO TID Qty: 14 0RF amoxicillin-pot clavulanate 875-125 mg tablet 1 tab PO BID Qty: 14 0RF ondansetron HCl 4 mg tablet 4 mg PO Q8H PRN (Reason: nausea and vomiting) 5 Days Qty: 20 0RF famotidine [Pepcid] 40 mg tablet 40 mg PO BID Qty: 14 0RF oseltamivir [Tamiflu] 75 mg capsule 75 mg PO BID 5 Days Qty: 10 0RF albuterol sulfate [Ventolin HFA] 90 mcg/actuation HFA aerosol inhaler 2 puff inhalation Q6H PRN (Reason: shortness of breath or wheezing) Qty: 8.5 0RF promethazine-DM 6.25-15 mg/5 mL syrup 5 ml PO Q6H PRN (Reason: cough) Qty: 118 0RF loratadine 10 mg tablet 10 mg PO QDAY Qty: 30 0RF Referrals: Travis Walker MD [Primary Care Provider] - In 1 week Problem List Clinical Impression: Influenza, Nausea vomiting and diarrhea, Acute hypokalemia, Cough Patient/Caregiver Discharge Instructions Education Materials: The Flu (Influenza) Additional Instructions: Please follow up with your primary care doctor in the next 24-48hrs for any worsening symptoms return here immediately Print Language: Turkmen Stand Alone Forms: Dinorah Award Info., Work/School Release, Patient Portal Info Letter PA/SCHOOL TRANSPORTATION SUPERVISOR Supervising Physician PA/SCHOOL TRANSPORTATION SUPERVISOR Supervising Physician: Dr Vale
[2024-04-21] MEDS: POTASSIUM CHLORIDE 20 mEq TABCR 40 MEQ PO (09:35)
[2024-04-21 10:20] LABS: Glucose Estimated Average 123 mg/dL (80-131); Hemoglobin A1C 5.9 % Hgb (4.8-6.0)
[2024-04-22 01:43] LABS: Mono Screen Negative (Negative)
== END 2024-04-21 10:41 | disposition home or self-care (01) ==
PROVIDERS: Nurse Practitioner Primary Care; Emergency Provider Emergency Medicine; PCP Family Medicine
DX: J11.1 Influenza due to unidentified influenza virus with other respiratory manifestations (principal); E87.6 Hypokalemia
CPT/HCPCS: 36415; 71045; 76705; 80053; 81001; 81025; 83036; 83690; 85025; 86308; 94640; 96361; 96374; 96375; 99284; A9270; J1100; J2765; J7030

== ENCOUNTER 2024-10-09 19:20 | Emergency (ER) | payer MEDICAID, SELFPAY ==
[2024-10-09 19:21] VITALS: BMI 32.1
[2024-10-09 19:28] VITALS: BP 151/95; PULSE 62; RESP 20; TEMP 36.5; O2SAT 95
--- NOTE | 2024-10-09 19:40 | PC.NURSE ---
no answer in lobby when called for room in ed
--- NOTE | 2024-10-09 20:15 | PC.NURSE ---
no answer in lobby when called for vital signs
--- NOTE | 2024-10-09 20:49 | PC.NURSE ---
no answer in lobby when called for room in ed
== END 2024-10-10 01:23 | disposition left against medical advice (07) ==
LOC: SERX 20:53
PROVIDERS: Emergency Provider Emergency Medicine
DX: Z53.21 Procedure and treatment not carried out due to patient leaving prior to being seen by health care provider (principal)
CPT/HCPCS: 99281

== ENCOUNTER 2024-12-26 07:49 | Emergency (ER) | payer MEDICAID, SELFPAY ==
[2024-12-26 07:50] VITALS: BMI 31.7
[2024-12-26 08:12] VITALS: BP 145/76; PULSE 78; RESP 18; TEMP 36.9; O2SAT 98
--- NOTE | 2024-12-26 08:22 | PD.EDBACK ---
ED Back Injury Pain RME/HPI General Chief Complaint: Back Pain/Injury Stated Complaint: BACK PAIN SINCE YESTERDAY Time Seen by Provider: 12/26/24 08:09 Source: patient Arrival date/time: 12/26/24 07:49 34-year-old female with a history of chronic back pain presents to the emergency room with a chief complaint of lower lumbar pain x 2 days Mode of arrival: ambulatory Limitations: no limitations Related Data Home Medications ?Medication ?Instructions ?Recorded ?Confirmed baclofen 20 mg tablet 20 mg PO QDAY PRN Pain 11/29/20 11/29/20 diclofenac sodium 1 % topical gel 4 g topical PRN PRN Pain 11/29/20 11/29/20 naproxen 500 mg tablet 500 mg PO Q12H PRN Pain 11/29/20 11/29/20 Previous Rx's ?Medication ?Instructions ?Recorded loperamide 2 mg capsule (Imodium 2 mg PO Q6H PRN loose stool #14 11/29/20 A-D) caps loperamide 2 mg capsule (Imodium 2 mg PO Q6H PRN loose stool #14 07/12/21 A-D) caps cetirizine 5 mg-pseudoephedrine ER 1 tab PO BID #20 tabs 12/18/21 120 mg tablet,extended release,12hr (Zyrtec-D) naproxen 500 mg tablet (Naprosyn) 500 mg PO BID #30 tabs 12/18/21 sodium chloride 0.65 % nasal spray 2 spray intranasal BID PRN nasal 12/18/21 aerosol (Saline Mist) congestion #45 mL cyclobenzaprine 5 mg tablet 5 mg PO QHSPRN PRN muscle spasm 09/03/22 #10 tabs lidocaine 5 % topical patch 1 patch topical QDAY #15 ea 09/03/22 (Lidoderm) cephalexin 500 mg capsule 500 mg PO QID #28 caps 09/18/22 albuterol sulfate 90 mcg/actuation 2 puff inhalation Q6H PRN 08/05/23 aerosol inhaler (Ventolin HFA) shortness of breath or wheezing #8.5 grams loratadine 10 mg tablet 10 mg PO QDAY #30 tabs 08/05/23 promethazine-DM 6.25 mg-15 mg/5 mL 5 ml PO Q6H PRN cough #118 mL 08/05/23 oral syrup benzonatate 100 mg capsule 100 mg PO TID #14 caps 12/18/23 amoxicillin 875 mg-potassium 1 tab PO BID #14 tabs 04/18/24 clavulanate 125 mg tablet famotidine 40 mg tablet (Pepcid) 40 mg PO BID #14 tabs 04/18/24 metoclopramide HCl 10 mg tablet 10 mg PO Q6H PRN nausea and 04/21/24 (Reglan) vomiting #30 tabs promethazine 12.5 mg rectal 12.5 mg NV Q8HR PRN nausea and 04/21/24 suppository vomiting #12 ea Allergies Allergy/AdvReac Type Severity Reaction Status Date / Time ibuprofen AdvReac Severe HX STOMACH Verified 12/26/24 07:52 INFECTION Review of Systems Review of Systems Systems Reviewed: All systems reviewed, normal except as documented Constitutional Constitutional: Reports system reviewed and no additional complaints, except as documented, Denies fatigue, Denies fever(s), Denies headache(s) and Denies weakness Eyes Eyes: Reports system reviewed and no additional complaints, except as documented, Denies blurry vision and Denies change in vision ENT Ears, Nose, Mouth, and Throat: Reports system reviewed and no additional complaints, except as documented, Denies otalgia, Denies headache(s), Denies nasal congestion, Denies throat swelling and Denies vertigo Cardiovascular Cardiovascular: Reports system reviewed and no additional complaints, except as documented, Denies chest pain, Denies dyspnea and Denies dyspnea on exertion Respiratory Respiratory: Reports system reviewed and no additional complaints, except as documented, Denies chest congestion, Denies cough, Denies dyspnea, Denies dyspnea on exertion and Denies wheezing Gastrointestinal Gastrointestinal: Reports system reviewed and no additional complaints, except as documented, Denies abdominal pain, Denies cramping, Denies nausea and Denies vomiting Genitourinary Genitourinary: Reports system reviewed and no additional complaints, except as documented Musculoskeletal Musculoskeletal: Reports system reviewed and no additional complaints, except as documented and Reports back pain Integumentary/Breasts Skin/Breast: Reports system reviewed and no additional complaints, except as documented and Denies wounds Neurologic Neurologic: Reports system reviewed and no additional complaints, except as documented, Denies confusion, Denies headache(s), Denies lack of coordination, Denies vertigo and Denies weakness Psychiatric Psychiatric: Reports system reviewed and no additional complaints, except as documented, Denies anxiety, Denies confusion, Denies depression, Denies paranoia, Denies suicidal ideation and Denies tactile hallucinations Endocrine Endocrine: Reports system reviewed and no additional complaints, except as documented and Denies fatigue Hematologic/Lymphatic Hematologic/Lymphatic: Reports system reviewed and no additional complaints, except as documented and Denies lymphadenopathy Allergic/Immunologic Allergic/Immunologic: Reports system reviewed and no additional complaints, except as documented, Denies throat swelling, Denies urticaria and Denies wheezing Past Medical History Past Medical History NEUROLOGIC: Negative Neurological Disorders CARDIAC: Negative Cardiac Disorders or Congestive Heart Failure RESPIRATORY: Negative Chronic Obstructive Pulmonary Disease (COPD) or Asthma GENITOURINARY: Negative Renal Disease ENDOCRINE: Negative Diabetes Mellitus Type 1 or Diabetes Mellitus Type 2 HEMATOLOGIC: Negative Sickle Cell Disease Social History SMOKING STATUS: Never smoker SUBSTANCE USE: marijuana ED Exam General Limitations: Present no limitations General appearance: Present alert and in no apparent distress Head Head exam: Present atraumatic Eye Eye exam: Present normal appearance, PERRL and EOMI ENT ENT exam: Present normal exam, normal oropharynx and mucous membranes moist Neck Neck exam: Present normal inspection, full ROM and trachea midline Chest Chest inspection: Present normal inspection and symmetric chest wall rise Respiratory Respiratory exam: Present normal lung sounds bilaterally Cardiovascular Cardiovascular exam: Present regular rate, normal rhythm and normal heart sounds Abdominal Exam Abdominal exam: Present soft and normal bowel sounds Extremities Exam Extremities exam: Present normal inspection and full ROM Back Exam Back exam: Present normal inspection, full ROM, tenderness and vertebral tenderness; Absent CVA tenderness (R) or CVA tenderness (L) Back 1 view image:  1. Neurological Exam Neurological exam: Present alert, oriented X3 and CN II-XII intact Psychiatric Psychiatric exam: Present normal affect and normal mood Skin Skin exam: Present warm, dry, intact and normal color Course Quality Measures none Orders Category Date Time Status XR lumbar spine 2-3V Stat Exams 12/26/24 08:25 Completed HCG Qualitative,Urine Stat Lab 12/26/24 08:45 Completed HYDROcodone*/APAP 5/325 [[place] 5/325] Med 12/26/24 08:25 Discontinued 1 tab PO X1 ONE Ketorolac Inj [Toradol Inj] Med 12/26/24 09:22 Once 30 mg IM X1 ONE Vital Signs Vital signs: Vital Signs Temperature 98.5 F 12/26/24 08:12 Pulse Rate 78 12/26/24 08:12 Respiratory Rate 18 12/26/24 08:12 Blood Pressure 145/76 H 12/26/24 08:12 Pulse Oximetry (%) 98 12/26/24 08:12 Oxygen Delivery Method Room Air 12/26/24 08:12 Back Pain / Injury MDM Narrative MDM Narrative:: 34-year-old female with a history of chronic back pain presents to the emergency room with a chief complaint of lower lumbar pain x 2 days Patient is hemodynamically stable and in no apparent distress Physical examination shows tenderness and pain to the lumbar coccyx part of her spine with palpation. There is no CVA tenderness there is no abdominal tenderness patient states she has a history of chronic back pain and is here due to breakthrough pain. X-ray of the lumbar spine was completed and shows no acute fracture no dislocation. The patient denies any saddle anesthesia or any numbness to her lower extremities. The patient denies any loss of bowel or bladder function. Patient was discharged and educated to follow-up with primary care provider in the next 24 to 48 hours and return to the emergency room for any evidence of worsening signs or symptoms Patient data External records reviewed:: [facility] previous records Clinical information provided by:: patient Social determinants that could affect healthcare access:: none Patient has the following chronic illnesses:: Chronic back pain How is presenting disease/condition affected by chronic disease/condition?: caused by Evaluation data The following diagnostics were reviewed and interpreted by me:: lab results and radiology exam(s) Lab and/or radiology exams considered but not ordered:: Labs and radiology exams considered and ordered Interpretation Summary: Lumbar [id number]: Satisfactory alignment lumbar vertebral bodies. No lumbar fracture No spondylolisthesis Transitional L5 vertebral body IMPRESSION: No lumbar fracture Medications / Prescriptions Medications or Prescriptions considered but not ordered:: Medication given Medication administrations:: Medication Administration History Discontinued Medications Hydrocodone Bitart/Acetaminophen (Hydrocodone/[place] 5/325 Tablet) 1 tab PO X1 ONE Stop: 12/26/24 08:26 Last Admin: 12/26/24 08:32 Dose: 1 tab Documented By: DB Medication given Consultations Consultation(s) initiated? (list below): No Diagnosis Differential diagnosis back pain/injury: lumbar radiculopathy, strain of lumbar region, thoracic back pain and discitis Most likely diagnosis given after review of the tests above:: Strain of lumbar region Admission Indicated Admission indicated?: not indicated Admission Request Was there a request for admission?: No Disposition Plan Disposition Plan: Discharge Discharge Attestation Discharge Attestation: The patient and all family members were given an opportunity to ask questions and understood the discharge instructions. Discharge instructions specifically effects, indications for sooner follow up or return to the emergency department, and the expected course of current diagnosis. Patient condition: Stable Discharge Plan Plan Patient Disposition: HOME (Self Care) Discharge Disposition comment: Stable Prescriptions/Referrals Prescriptions/Med Rec: No Action baclofen 20 mg tablet 20 mg PO QDAY PRN (Reason: Pain) Patient Comments: take 1 tablet by mouth twice a day if needed for MUSCLE PAIN naproxen 500 mg tablet 500 mg PO Q12H PRN (Reason: Pain) Patient Comments: take 1 tablet by mouth every 12 hours if needed pain diclofenac sodium 1 % gel 4 g TOPICAL PRN PRN (Reason: Pain) Patient Comments: apply 4 grams to AFFECTED JOINT four times a day loperamide [Imodium A-D] 2 mg capsule 2 mg PO Q6H PRN (Reason: loose stool) Qty: 14 0RF loperamide [Imodium A-D] 2 mg capsule 2 mg PO Q6H PRN (Reason: loose stool) Qty: 14 0RF cetirizine-pseudoephedrine [Zyrtec-D] 5-120 mg tablet extended release 12 hr 1 tab PO BID Qty: 20 0RF naproxen [Naprosyn] 500 mg tablet 500 mg PO BID Qty: 30 0RF Saline Mist 0.65 % aerosol,spray 2 spray intranasal BID PRN (Reason: nasal congestion) Qty: 45 0RF cyclobenzaprine 5 mg tablet 5 mg PO QHSPRN PRN (Reason: muscle spasm) Qty: 10 0RF lidocaine [Lidoderm] 5 % adhesive patch,medicated 1 patch topical QDAY Qty: 15 0RF Rx Instructions: leave on most painful area for up to 12 hrs cephalexin 500 mg capsule 500 mg PO QID Qty: 28 0RF benzonatate 100 mg capsule 100 mg PO TID Qty: 14 0RF amoxicillin-pot clavulanate 875-125 mg tablet 1 tab PO BID Qty: 14 0RF famotidine [Pepcid] 40 mg tablet 40 mg PO BID Qty: 14 0RF promethazine 12.5 mg suppository 12.5 mg NV Q8HR PRN (Reason: nausea and vomiting) Qty: 12 0RF metoclopramide HCl [Reglan] 10 mg tablet 10 mg PO Q6H PRN (Reason: nausea and vomiting) Qty: 30 0RF albuterol sulfate [Ventolin HFA] 90 mcg/actuation HFA aerosol inhaler 2 puff inhalation Q6H PRN (Reason: shortness of breath or wheezing) Qty: 8.5 0RF promethazine-DM 6.25-15 mg/5 mL syrup 5 ml PO Q6H PRN (Reason: cough) Qty: 118 0RF loratadine 10 mg tablet 10 mg PO QDAY Qty: 30 0RF Referrals: Travis Walker MD [Primary Care Provider] - In 1 week Problem List Clinical Impression: Strain of lumbar region Patient/Caregiver Discharge Instructions Education Materials: ED Back Sprain/Strain Additional Instructions: Please follow-up with your primary care provider in the next 24 to 48 hours X-rays of your lower back were negative for any acute fracture or dislocation For any evidence of worsening signs or symptoms return emergency room immediately Print Language: Sami Stand Alone Forms: Dinorah Award Info., Patient Portal Info Letter PA/BRANCH OFFICE MANAGER Supervising Physician PA/BRANCH OFFICE MANAGER Supervising Physician: Dr. Julien
--- NOTE | 2024-12-26 08:25 | XR_ITS ---
Examination: Lumbar spine 3 views TECHNIQUE: Supine AP lateral coned lateral lower lumbar spine 3 views Date and time: December 26, 2024 0831 hours INDICATIONS: Patient tripped and fell last week with injury to the back, back pain. FINDINGS: Satisfactory alignment lumbar vertebral bodies. No lumbar fracture No spondylolisthesis Transitional L5 vertebral body IMPRESSION: No lumbar fracture
[2024-12-26] MEDS: HYDROcodone/APAP 5/325 TABLET 1 TAB PO (08:32)
[2024-12-26 09:18] LABS: HCG Qualitative,Urine Negative
[2024-12-26] MEDS: KETOROLAC INJ 60 MG/2 ML VIAL 30 MG IM (09:35)
--- NOTE | 2024-12-26 09:42 | CHAP ---
Patient expressed gratitude for visit and Prayer.
== END 2024-12-26 09:41 | disposition home or self-care (01) ==
PROVIDERS: Nurse Practitioner Family; Emergency Provider Family Medicine; PCP Family Medicine
DX: S39.012A Strain of muscle, fascia and tendon of lower back, initial encounter (principal); X58.XXXA Exposure to other specified factors, initial encounter
CPT/HCPCS: 72100; 81025; 96372; 99283; J1885; A9270